=== PATIENT | female | born 1950 | race Caucasian/White ===

== ENCOUNTER → 2020-09-16 13:42 | Outpatient (BNVA) | payer MEDICARE, SELFPAY | PROVIDERS: PCP Internal Medicine; Referring Provider Internal Medicine; Visit Provider Hospitalist | DX: J44.9 Chronic obstructive pulmonary disease, unspecified (principal) | CPT/HCPCS: 99212 ==

== ENCOUNTER 2021-02-24 09:43 | Outpatient (REF) | payer MEDICARE, SELFPAY ==
--- NOTE | 2021-02-24 17:04 | PFT_ITS ---
Forced vital capacity is normal. FEV1, RLZ26-25 and MVV were markedly decreased. post-bronchodilator therapy, there is no change. Total lung capacity is slightly increased. Residual volume moderately increased. Diffusion capacity is markedly decreased. CONCLUSION: 1. Severe obstructive airway disorder. 2. No response to bronchodilator therapy. 3. There is evidence of hyperinflation and air trapping. 4. Clinical correlation recommended. MD STEVIE Banda/MODL / [id number]
== END 2021-02-24 09:44 | disposition home or self-care (01) ==
LOC: HO.RESP 09:43
PROVIDERS: PCP Internal Medicine; Visit Provider Hospitalist
DX: J44.9 Chronic obstructive pulmonary disease, unspecified (principal); Z79.899 Other long term (current) drug therapy
CPT/HCPCS: 94060; 94727; 94729

== ENCOUNTER → 2021-03-13 09:12 | Outpatient (BNVA) | payer MEDICARE, SELFPAY | PROVIDERS: PCP Internal Medicine; Visit Provider Hospitalist | DX: R06.00 Dyspnea, unspecified (principal); J43.2 Centrilobular emphysema; Z79.899 Other long term (current) drug therapy | CPT/HCPCS: 99212 ==

== ENCOUNTER → 2021-10-31 09:29 | Outpatient (BNVA) | payer MEDICARE, SELFPAY | PROVIDERS: PCP Internal Medicine; Visit Provider Hospitalist | DX: R06.00 Dyspnea, unspecified (principal); J43.2 Centrilobular emphysema | CPT/HCPCS: 99212 ==

== ENCOUNTER 2024-09-21 14:29 | Outpatient (AMB) | payer MEDICARE, SELFPAY ==
--- NOTE | 2024-09-21 14:33 | MHC.OFFVIS ---
Vital Signs 09/21/24 14:37 Height 5 ft 4 in Weight 165 lb 5.547 oz BMI 28.4 BP 108/64 Blood Pressure Location Lt brachial Position Sitting Pulse 75 Pulse Source Pulse Oximeter Pulse Oximetry (%) 95 Oxygen Delivery Method Room Air Intake Visit Reasons: COPD Tapper Helper Required: No Software Quality Assurance Engineer: Software Quality Assurance Engineer offered & declined Accompanied by: Spouse Allergies Sulfa (Sulfonamide Antibiotics) Allergy (Severe, Verified 09/21/24 14:43) Rash/Hives Medication List - Last Reconciled 09/21/24 by Criss Davis LPN albuterol sulfate 90 mcg/actuation 2 inhalations inhalation Q6H PRN 30 days alprazolam 0.5 mg PO Q12H PRN Anoro Ellipta 62.5-25 mcg/actuation (umeclidinium-vilanterol) 1 ea PO DAILY NS lamotrigine 0 mg PO venlafaxine ER 150 mg PO DAILY HPI Comments Details: The patient is a 74-year-old woman known history of COPD. Overall the patient has been doing well on the current medication. She does complaint of dyspnea on exertion. Mild in severity. She also is concerned that sometimes she checks her oxygen with her oximeter and a recent down to 94%. Therefore, we did go for 6 minutes walk test here in the office and she did maintain a pulse ox between 95-96% throughout the ambulation. She denies any significant coughing or chest discomfort. She has not had to use her rescue inhaler. Overall she is doing well. She is going to be going down to [place] in the coming weeks. The patient needs to get a chest x-ray, but, will mail her the requisition for her to get a when she comes back from [place]. 10/31/2021 the patient is here for pulmonary follow-up visit. Overall she has been doing well. She continues with her current respiratory medication. She has not had to use rescue medication. She did get vaccinated for COVID-19. She continues to have dyspnea on exertion [id number] severity. Primarily when going up a flight of stairs. We did have her undergo pulmonary function studies which were personally reviewed by me. The patient does have a moderate to severe chronic obstructive lung disease. She also has a moderate to severe diffusion impairment likely from underlying emphysema. During the office visit we did go and 6 minutes walk test. The patient did not qualify for oxygen although her oxygen dropped to the low 90s. Explained to the patient that the symptoms of shortness of breath can sometimes be due to other etiologies in therefore cardiac conditions also need to be considered. Therefore, I did request she have an EKG done when she sees her primary care doctor. The patient apparently did have a stress test may be 5 6 years ago per the patient's memory. The patient has not started pulmonary rehabilitation or does she does a lot of walking with her . She is scheduled for the lung cancer screening program and she is due for CT scan in the next month or 2. She will get me a copy of the results once available. She will continue the Anoro for now. We did talk about maximizing her therapy to Trelegy. Although I do not feel strongly that the inhaled steroids will provide any significant improvement in her condition. 09/21/2024 the patient is here for a pulmonary follow-up visit. Overall she is doing well. She has not been seeing now few years. She got lost with the pandemic. The patient otherwise it does complaint of increasing dyspnea on exertion. Specially going up a flight of stairs she has a hard time going up an incline. She does feel winded and sometimes he needs to stop. She has been doing the Anoro. Although she is having to use her rescue inhaler more often typically once or twice a day. In the meantime she is participating in the lung cancer screening program. She had a CT scan at [facility] back in 07/07/2024. I did personally reviewed the images with her. She does have moderate degree of emphysema. She also has the stable pulmonary nodule in the lingula. Although looks a little bit more like sick coughing. This ill-defined. Is been stable though and she will continue getting serial CT scans until she is done with the protocol. She does have some wheezing on examination. I do believe she will be better off switching over to Trelegy. Although she does have numerous Anoro is at home so therefore will do his which is add inhaled cortical steroid, Arnuity to her Anoro at this time. I am hopeful that makes a difference. Then after in 3 months' time when she runs on the Anoro she can let me know if she wants to stay on the Anoro or go on Trelegy. When she returns next year the patient will undergo pulmonary function studies to better address her lung capacity. If she has any issues prior to that she will call for further evaluation. [facility] Medical History (Updated 03/13/21 @ 21:17 by Ishan Grant MD) Dyspnea COPD (chronic obstructive pulmonary disease) Social History (Updated 09/21/24 @ 14:45 by Criss Davis LPN) Patient Tobacco Use Status: Former Tobacco user Tobacco use type: Cigarette Years Smoked: 35 years Review of Systems Const Denies night sweats ENT Denies change in voice, Denies lip swelling, Denies mouth pain, Reports nasal congestion, Reports nasal discharge and Denies tongue swelling Card Denies chest pain and Reports dyspnea on exertion Resp Reports dyspnea on exertion GI Denies abdominal pain Musc Denies no additional complaints Neuro Denies Neuro-related abnormal movements Psych Denies no additional complaints Otilio/Lymph Denies easy bleeding and Denies lymphadenopathy Aller/Immun Denies lip swelling and Denies tongue swelling Physical Exam Vital Signs: Last Vital Signs Pulse 75 09/21/24 14:37 BP 108/64 09/21/24 14:37 Pulse Ox 95 09/21/24 14:37 Oxygen Delivery Method Room Air 09/21/24 14:37 BMI result Body Mass Index 28.4 Const General: alert Neck Neck: Yes normal visual inspection, Yes full ROM and Yes no lymphadenopathy Chest Chest palpation & inspection: normal inspection of the chest Resp Effort & Inspection: prolonged expiratory phase Auscultation: wheezes and diminished lung sounds Cardio Rate: regular rate Rhythm: regular rhythm Heart sounds: S1 normal heart sound present and S2 normal heart sound present GI Palpation (GI): Soft to palpation and nontender Auscultation: normal bowel sounds Skin General skin exam: rashes and/or lesions noted Assessment & Plan Assessment & Plan (1) Dyspnea: Code(s): R06.00 - Dyspnea, unspecified Category: Medical Qualifiers: Dyspnea type: dyspnea on exertion Qualified Code(s): R06.00 - Dyspnea, unspecified (2) COPD (chronic obstructive pulmonary disease): Code(s): J44.9 - Chronic obstructive pulmonary disease, unspecified Category: Medical Qualifiers: COPD type: emphysema Emphysema type: centrilobular Qualified Code(s): J43.2 - Centrilobular emphysema Plan Continue Anoro start Arnuity, consider Trelegy when she completes her Anoro ERIKA as needed Lung cancer screening program at [facility] 06/2025. Has a stable lingular ill def 4mm nodule and emphysema F/U 8 months with PFTs Orders: Orders PFT pulmonary function test 6 Months J43.2 - Centrilobular emphysema Medications: New fluticasone furoate 100 mcg/actuation (Arnuity Ellipta) 1 inh inhalation DAILY 30 days 30 ea 11RF Coding Level of Care Code Est Pt Level 4 (88584) Diagnoses Dyspnea on exertion R06.00 Dyspnea type: dyspnea on exertion Centrilobular emphysema J43.2 COPD type: emphysema Emphysema type: centrilobular Time Spent (min) 30
[2024-09-21 14:37] VITALS: BP 108/64; PULSE 75; O2SAT 95; BMI 28.4
== END 2024-09-21 15:15 | disposition home or self-care (01) ==
LOC: HO.HPS 14:30
PROVIDERS: PCP Internal Medicine; Visit Provider Hospitalist
DX: R06.00 Dyspnea, unspecified (principal); J43.2 Centrilobular emphysema
CPT/HCPCS: 99214

== ENCOUNTER → 2024-09-21 14:29 | Outpatient (BNVA) | payer MEDICARE, SELFPAY | PROVIDERS: PCP Internal Medicine; Visit Provider Hospitalist | DX: R06.00 Dyspnea, unspecified (principal); J43.2 Centrilobular emphysema | CPT/HCPCS: 99212 ==